=== PATIENT | male | born 2000 | race Two or more races ===

== ENCOUNTER 2018-11-21 03:21 | Inpatient (IN) | payer OTHER ==
[~2018-11-21] VITALS: Ht 160 cm; Wt 72.7 kg
[2018-11-21] MEDS ORDERED: ONDANSETRON ODT 4 MG ONE (03:45)
[2018-11-21] MEDS ORDERED: KETOROLAC 30 MG/1 ML ONE (03:45)
[2018-11-21] MEDS ORDERED: LORazepam 2 MG/ML, 1ML ONE (04:30)
[2018-11-21] MEDS ORDERED: LORazepam 2 MG/ML, 1ML IVPush ONE (04:30)
[2018-11-21] MEDS ORDERED: PLEASE ENTER ALLERGIES MC SCH (04:30)
[2018-11-21 04:34] LABS: ALANINE AMINOTRANSFERASE 25 U/L (12-78); ALBUMIN 4.4 g/dL (3.4-5.0); ANION GAP 12 mmol/L (5-15); CHLORIDE 105 mmol/L (98-107); CREATININE 2.43 mg/dL (0.7-1.3)
[2018-11-21 04:37] LABS: ALKALINE PHOSPHATASE 77 U/L (45-117); BILIRUBIN,TOTAL 0.7 mg/dL (0.2-1.0)
--- NOTE | 2018-11-21 04:38 | NUR ---
pt medicated per mar
--- NOTE | 2018-11-21 04:40 | NUR ---
pt resting calmly, stated " whatever you gave me fixed my pain", monitors in place, siderails up x2, call light within reach. discussed need for urine sample, pt stated " i 'm unable to void".
[2018-11-21 04:42] LABS: BASOPHILS # (AUTO) 0.03 x10^3/uL (0-0.3); BASOPHILS % (AUTO) 0 % (0-1); EOSINOPHILS # (AUTO) 0.01 x10^3/uL (0-0.8); EOSINOPHILS % (AUTO) 0 % (1-7); LYMPHOCYTES # (AUTO) 0.44 x10^3/uL (1-6.1); LYMPHOCYTES % (AUTO) 3 % (22-44); MD NO; MEAN CORPUSCULAR HEMOGLOBIN 28.7 pg (27.5-34.5); MEAN CORPUSCULAR HGB CONC 33.5 g/dL (33.2-36.2); MEAN CORPUSCULAR VOLUME 85.6 fL (81-97); MEAN PLATELET VOLUME 8.4 fL (7.4-10.4); MONOCYTES # (AUTO) 0.64 x10^3/uL (0-1.4); MONOCYTES % (AUTO) 4 % (2-9); NEUTROPHILS # (AUTO) 14.62 x10^3/uL (1.8-8.0); NEUTROPHILS % (AUTO) 93 % (42-75); PLATELET COUNT 197 x10^3/uL (130-400); RED BLOOD COUNT 5.43 x10^6/uL (4.38-5.82); RED CELL DISTRIBUTION WIDTH 13.9 % (9.4-14.8)
[2018-11-21] MEDS ORDERED: SODIUM CHLORIDE 0.9% 1,000ML IVBOLUS ONE (05:00)
[2018-11-21] MEDS ORDERED: SODIUM CHLORIDE FLUSH 10ML SYR IVF ONE (05:00)
[2018-11-21] MEDS ORDERED: MORPHINE SULFATE 4 MG/ML, 1ML IVPush PRN (05:00)
--- NOTE | 2018-11-21 05:32 | NUR ---
pt resting with eyes closed, nadn, equal chest rise/fall observed, monitors in place, call light within reach. awaiitng room for admit
--- NOTE | 2018-11-21 06:27 | NUR ---
pt resting calmly, nad, denies needs, monitors in place, call light within reach
[2018-11-21 07:00] VITALS: BP 109/64
[2018-11-21] MEDS ORDERED: LABETALOL 5MG/ML, 20ML IVPush PRN (09:00)
[2018-11-21] MEDS ORDERED: ONDANSETRON ODT 4 MG PO PRN (09:00)
[2018-11-21] MEDS ORDERED: PLEASE ENTER HEIGHT AND WEIGHT MC SCH (09:00)
[2018-11-21 09:32] LABS: FREE T4 (FREE THYROXINE) 1.32 ng/dL (0.76-1.46)
[2018-11-21 10:34] VITALS: BP 115/68
[2018-11-21] MEDS: D5%-0.45% NACL 1,000 ML IV SCH ×2 (10:41→17:52)
[2018-11-21 11:08] LABS: MICROSCOPIC INDICATED
[2018-11-21 11:27] LABS: CULTURE INDICATED? NO
[2018-11-21] MEDS: ESOMEPRAZOLE 40 MG IV IVPush SCH (11:40)
[2018-11-21 14:50] VITALS: BP 118/65
[2018-11-21 18:49] LABS: TROPONIN I < 0.015 ng/mL (0.000-0.045)
[2018-11-21] MEDS: HEPARIN 5,000 UNITS/ML, 1ML SQ SCH (19:31)
[2018-11-21] MEDS: ONDANSETRON 2MG/ML, 2ML IVPush PRN (19:36)
[2018-11-21 19:56] VITALS: BP 123/83
[2018-11-22] MEDS: D5%-0.45% NACL 1,000 ML IV SCH (00:42)
[2018-11-22 00:52] VITALS: BP 96/60
[2018-11-22 02:08] LABS: BASOPHILS # (AUTO) 0.02 x10^3/uL (0-0.3); BASOPHILS % (AUTO) 0 % (0-1); EOSINOPHILS # (AUTO) 0.13 x10^3/uL (0-0.8); EOSINOPHILS % (AUTO) 1 % (1-7); LYMPHOCYTES # (AUTO) 1.14 x10^3/uL (1-6.1); LYMPHOCYTES % (AUTO) 10 % (22-44); MD NO; MEAN CORPUSCULAR HEMOGLOBIN 28.8 pg (27.5-34.5); MEAN CORPUSCULAR HGB CONC 33.4 g/dL (33.2-36.2); MEAN CORPUSCULAR VOLUME 86.2 fL (81-97); MEAN PLATELET VOLUME 8.5 fL (7.4-10.4); MONOCYTES # (AUTO) 1.27 x10^3/uL (0-1.4); MONOCYTES % (AUTO) 11 % (2-9); NEUTROPHILS # (AUTO) 9.54 x10^3/uL (1.8-8.0); NEUTROPHILS % (AUTO) 79 % (42-75); PLATELET COUNT 156 x10^3/uL (130-400); RED BLOOD COUNT 4.52 x10^6/uL (4.38-5.82); RED CELL DISTRIBUTION WIDTH 13.7 % (9.4-14.8)
[2018-11-22 02:26] LABS: ALANINE AMINOTRANSFERASE 20 U/L (12-78); ALBUMIN 3.2 g/dL (3.4-5.0); ANION GAP 9 mmol/L (5-15); CALCIUM 7.9 mg/dL (8.5-10.1); CHLORIDE 108 mmol/L (98-107)
[2018-11-22 02:35] LABS: TROPONIN I < 0.015 ng/mL (0.000-0.045)
[2018-11-22 02:37] LABS: ALKALINE PHOSPHATASE 55 U/L (45-117); BILIRUBIN,TOTAL 0.4 mg/dL (0.2-1.0); CREATININE 3.95 mg/dL (0.7-1.3); THYROID STIMULATING HORMONE 0.345 mIU/L (0.358-3.740); TOTAL PROTEIN 6.2 g/dL (6.4-8.2)
[2018-11-22] MEDS: HEPARIN 5,000 UNITS/ML, 1ML SQ SCH ×3 (03:38→19:48)
[2018-11-22] MEDS: ACETAMINOPHEN 325 MG TABLET PO PRN ×3 (03:41→19:48)
[2018-11-22] MEDS ORDERED: SODIUM CHLORIDE 0.45% 1,000 ML IV SCH (08:00)
[2018-11-22 08:04] VITALS: BP 124/72
[2018-11-22] MEDS: ESOMEPRAZOLE 40 MG IV IVPush SCH (08:24)
[2018-11-22 08:59] LABS: TROPONIN I < 0.015 ng/mL (0.000-0.045)
[2018-11-22] MEDS: SODIUM BICARBONATE 8.4% 75 MEQ in SODIUM CHLORIDE 0.45% 1,000 ML IV SCH ×2 (08:59→17:11)
[2018-11-22 09:59] LABS: CREATININE,URINE RANDOM 93.4 mg/dL
[2018-11-22] MEDS ORDERED: PHARMACY MAY ADJ FOR RENAL FX MC PRN (12:30)
[2018-11-22 13:47] VITALS: BP 113/63
[2018-11-22] MEDS: ONDANSETRON 2MG/ML, 2ML IVPush PRN (17:15)
[2018-11-22 20:12] VITALS: BP 147/92
[2018-11-23] MEDS: SODIUM BICARBONATE 8.4% 75 MEQ in SODIUM CHLORIDE 0.45% 1,000 ML IV SCH ×4 (00:37→22:17)
[2018-11-23 02:57] VITALS: BP 144/84
[2018-11-23] MEDS: ACETAMINOPHEN 325 MG TABLET PO PRN ×3 (05:03→22:55)
[2018-11-23] MEDS: HEPARIN 5,000 UNITS/ML, 1ML SQ SCH ×3 (05:03→20:22)
[2018-11-23 05:26] LABS: BASOPHILS # (AUTO) 0.02 x10^3/uL (0-0.3); BASOPHILS % (AUTO) 0 % (0-1); EOSINOPHILS # (AUTO) 0.13 x10^3/uL (0-0.8); EOSINOPHILS % (AUTO) 1 % (1-7); LYMPHOCYTES # (AUTO) 1.35 x10^3/uL (1-6.1); LYMPHOCYTES % (AUTO) 14 % (22-44); MD NO; MEAN CORPUSCULAR HEMOGLOBIN 28.6 pg (27.5-34.5); MEAN CORPUSCULAR HGB CONC 33.5 g/dL (33.2-36.2); MEAN CORPUSCULAR VOLUME 85.5 fL (81-97); MEAN PLATELET VOLUME 8.4 fL (7.4-10.4); MONOCYTES % (AUTO) 12 % (2-9); NEUTROPHILS # (AUTO) 6.93 x10^3/uL (1.8-8.0); NEUTROPHILS % (AUTO) 73 % (42-75); PLATELET COUNT 141 x10^3/uL (130-400); RED BLOOD COUNT 4.39 x10^6/uL (4.38-5.82); RED CELL DISTRIBUTION WIDTH 13.4 % (9.4-14.8)
[2018-11-23 05:30] LABS: CHLORIDE 109 mmol/L (98-107)
[2018-11-23 05:36] LABS: ALANINE AMINOTRANSFERASE 22 U/L (12-78); ALBUMIN 2.9 g/dL (3.4-5.0); ALKALINE PHOSPHATASE 47 U/L (45-117); ANION GAP 6 mmol/L (5-15); BILIRUBIN,TOTAL 0.4 mg/dL (0.2-1.0); CALCIUM 7.6 mg/dL (8.5-10.1); CREATINE KINASE, TOTAL 814 U/L (39-308); CREATININE 3.74 mg/dL (0.7-1.3); TOTAL PROTEIN 5.7 g/dL (6.4-8.2)
[2018-11-23 08:00] VITALS: BP 131/77
[2018-11-23] MEDS: ESOMEPRAZOLE 40 MG IV IVPush SCH (08:41)
[2018-11-23 11:11] LABS: ABSOLUTE RETICS # 0.036 x10^6/uL (0.5-1.5); RED BLOOD COUNT 4.72 x10^6/uL (4.38-5.82); RETICULOCYTE COUNT % 0.75 % (0.5-1.5)
[2018-11-23 11:17] LABS: CALCIUM 8.3 mg/dL (8.5-10.1)
[2018-11-23 11:31] LABS: T4 (THYROXINE) 8.2 mcg/dL (4.5-12.1)
[2018-11-23 12:13] LABS: MICROSCOPIC NOT IND
[2018-11-23 12:26] LABS: CREATININE,URINE RANDOM 86.3 mg/dL
[2018-11-23 14:57] VITALS: BP 133/79
[2018-11-23 18:48] VITALS: BP 112/79
[2018-11-24 01:12] VITALS: BP 130/78
[2018-11-24] MEDS: HEPARIN 5,000 UNITS/ML, 1ML SQ SCH ×2 (05:37→11:15)
[2018-11-24] MEDS ORDERED: PANTOPROZOLE 40MG TABLET PO SCH (06:00)
[2018-11-24 06:03] LABS: CHLORIDE 107 mmol/L (98-107)
[2018-11-24 06:13] LABS: ALANINE AMINOTRANSFERASE 24 U/L (12-78); ALKALINE PHOSPHATASE 47 U/L (45-117); ANION GAP 6 mmol/L (5-15); BILIRUBIN,TOTAL 0.4 mg/dL (0.2-1.0); CALCIUM 8.1 mg/dL (8.5-10.1); CREATINE KINASE, TOTAL 752 U/L (39-308); CREATININE 2.56 mg/dL (0.7-1.3); TOTAL PROTEIN 5.9 g/dL (6.4-8.2)
[2018-11-24] MEDS ORDERED: ERGOCALCIFEROL 50,000 UNIT CAPSULE PO SCH (08:00)
[2018-11-24] MEDS: SODIUM BICARBONATE 8.4% 75 MEQ in SODIUM CHLORIDE 0.45% 1,000 ML IV SCH (08:13)
[2018-11-24 08:39] VITALS: BP 158/84
[2018-11-24 08:43] LABS: BASOPHILS # (AUTO) 0.02 x10^3/uL (0-0.3); BASOPHILS % (AUTO) 0 % (0-1); EOSINOPHILS # (AUTO) 0.05 x10^3/uL (0-0.8); EOSINOPHILS % (AUTO) 1 % (1-7); LYMPHOCYTES # (AUTO) 1.13 x10^3/uL (1-6.1); LYMPHOCYTES % (AUTO) 14 % (22-44); MD NO; MEAN CORPUSCULAR HEMOGLOBIN 28.1 pg (27.5-34.5); MEAN CORPUSCULAR HGB CONC 33.3 g/dL (33.2-36.2); MEAN CORPUSCULAR VOLUME 84.4 fL (81-97); MEAN PLATELET VOLUME 8.8 fL (7.4-10.4); MONOCYTES % (AUTO) 12 % (2-9); NEUTROPHILS # (AUTO) 5.96 x10^3/uL (1.8-8.0); NEUTROPHILS % (AUTO) 73 % (42-75); PLATELET COUNT 141 x10^3/uL (130-400); RED BLOOD COUNT 5.14 x10^6/uL (4.38-5.82); RED CELL DISTRIBUTION WIDTH 13.2 % (9.4-14.8)
[2018-11-27 13:05] LABS: ANA SCREEN NEGATIVE (Negative)
== END 2018-11-24 17:23 | disposition left against medical advice (07) | DRG 683 ==
LOC: ED 06:35 → 3NW 06:36 → ED 07:03 → 4EST 10:23
PROVIDERS: ADMIT Emergency Medicine; ATTEND Emergency Medicine
DX: N17.9 Acute kidney failure, unspecified (principal); T75.1XXA Unspecified effects of drowning and nonfatal submersion, initial encounter; M62.82 Rhabdomyolysis; D64.9 Anemia, unspecified; D72.829 Elevated white blood cell count, unspecified; E86.9 Volume depletion, unspecified; F17.200 Nicotine dependence, unspecified, uncomplicated; Z53.21 Procedure and treatment not carried out due to patient leaving prior to being seen by health care provider
CPT/HCPCS: 0399T; 36415; 74022; 76770; 80053; 81001; 81003; 82306; 82310; 82436; 82550; 82570; 82728; 83540; 83550; 83690; 83735; 83970; 84100; 84133; 84156; 84300; 84436; 84439; 84443; 84481; 84484; 84550; 85025; 85045; 86038; 87205; 93005; 93306; 96374; G0378; J1644; J2405; J2060; J7030

== ENCOUNTER 2019-04-20 03:25 | Emergency (ER) | payer SELFPAY ==
[~2019-04-20] VITALS: Ht 175.3 cm; Wt 72.7 kg
[2019-04-20 03:26] VITALS: BP 152/78
--- NOTE | 2019-04-20 03:42 | NUR ---
PT DENIES MEDICAL COMPLAINTS. REPEATING "WHEN IS THIS GOING TO STOP". STATES HE DOESN'T LIKE THE FEELING FROM THE MUSHROOMS. PT A&O TO PERSON AND PLACE. ERP IN TO EVAL AND OK TO D/C WHEN ABLE. PT WITH STEADY GAIT. ATTEMPTING TO CALL PT'S MOTHER.
--- NOTE | 2019-04-20 03:53 | NUR ---
MOTHER'S PHONE GOING STRAIGHT TO [facility]. PT NOW CALLING FRIEND LO. RN ATTEMPTED TO DISCUSS LO COMING TO P/U PT--FRIEND IS UNABLE TO PROVIDE RIDE.
--- NOTE | 2019-04-20 04:34 | NUR ---
report from shona franklin
--- NOTE | 2019-04-20 04:35 | NUR ---
PT UNABLE TO FIND SAFE RIDE AT THIS TIME. VOICEMAIL LEFT FOR MOTHER. REPORT TO KALIE CARRINGTON.
--- NOTE | 2019-04-20 06:07 | NUR ---
PT CALLED HIS FRIEND AND FRIEND STATES HE CAN PICK HIM UP AT 0700. PT CONTINUES TO GET UP AND WALK OUT OF ROOM STATING "I WANT TO GO HOME" PT A+OX2(SELF/SITUATION) BUT STATES HE DOES NOT KNOW WHERE HE IS, WHAT DAY IT IS, WHAT MONTH IT IS. PT IS AWARE THAT HE TOOK TOO MANY MUSHROOMS. PT ATTEMPTING TO GAG HIMSELF IN ROOM AND WANTING TO VOMIT ON THE FLOOR TO GET RID OF THE MUSHROOM. PT INSTRUCTED NOT TO DO THIS.
--- NOTE | 2019-04-20 06:39 | NUR ---
PT ROOMATE HERE TO PICK HIM UP AND TAKE HIM HOME.
== END 2019-04-20 06:41 | disposition home or self-care (01) ==
LOC: ED 06:00
DX: A05.9 Bacterial foodborne intoxication, unspecified (principal); F15.922 Other stimulant use, unspecified with intoxication with perceptual disturbance; F17.200 Nicotine dependence, unspecified, uncomplicated
CPT/HCPCS: 99283